=== PATIENT | female | born 1965 | race Caucasian/White ===

== ENCOUNTER 2016-11-25 09:05 | Inpatient (IN) | payer BC ==
[~2016-11-25] VITALS: Ht 162.6 cm; Wt 115.3 kg
--- NOTE | ~2016-11-25 | CON ---
PATIENT'S NAME: BARRETT ANDREWS [facility] AGE: 50 Y [address] ROOM: [place] [address] [place] [facility] [place]MIT DATE: 11/25/2016 Consultation DISCHARGE DATE: FAMILY PHYSICIAN: Abby Young APRN ATTENDING PHYSICIAN: ONESIMO MALIK DATE OF CONSULTATION: 11/25/2016 CHIEF COMPLAINT: Left-sided abdominal pain. HISTORY OF PRESENT ILLNESS: The patient is a pleasant 50-year-old female who had presented to the emergency room in [place], [place], today with complaints of left-sided lower abdominal pain. She had underwent a CT scan where she was found to have left-sided hydronephrosis. There was no evidence of any ureteral calculi, and she did have a dilated ureter down to her lower pelvis. She did have findings on the CT scan which would suggest some sort of retroperitoneal fibrotic process. She did have some retroperitoneal nodularity or possible lymphadenopathy which appeared to have been stable when compared to CT scan back in 2013. Of note, she was admitted back in 2013 with a retroperitoneal hemorrhage, and at that time, she had had right-sided abdominal pain. She does have an IVC filter in place. She denies any previous history of nephrolithiasis. She does have multiple medical issues including obesity and factor V Leiden syndrome. She is on chronic anticoagulation with Xarelto. Her pain started yesterday evening about 10 p.m. She did have some associated nausea and vomiting earlier this morning. She denied any fevers. All of her pain has been located on the left side and was quite severe in nature when she presented to the emergency room. She was then transferred to [facility] for further evaluation and treatment. The patient has no further questions or concerns at this time. PAST MEDICAL HISTORY: 1. Factor V Leiden syndrome. 2. History of depression. 3. History of retroperitoneal hemorrhage in 2013. PAST SURGICAL HISTORY: 1. Splenectomy. 2. Nate IVC filter placement. 3. Hysterectomy without oophorectomy. 4. Appendectomy. 5. Abdominal wall hernia surgery. ALLERGIES: PATIENT'S NAME: BARRETT ANDREWS [facility] AGE: 50 Y [address] ROOM: [place] [address] [place] [facility] [place]MIT DATE: 11/25/2016 Consultation DISCHARGE DATE: FAMILY PHYSICIAN: Abby Young APRN ATTENDING PHYSICIAN: ONESIMO MALIK MORPHINE (HIVES) AND ROCEPHIN (TINGLING). SOCIAL HISTORY: The patient denies any tobacco or alcohol use. FAMILY HISTORY: The patient denies any known family history of genitourinary abnormalities or malignancy. REVIEW OF SYSTEMS: A full 10+ point review of systems was performed with pertinent positive and negative findings included in the History of Present Illness. All other systems were reviewed and are otherwise negative. MEDICATIONS: See hospitalization medication reconciliation. PHYSICAL EXAMINATION: VITAL SIGNS: Her height is 164 cm, and her weight is 114.5 kg. Her vital signs are stable. CONSTITUTIONAL: The patient is in no acute distress. She is awake and oriented. HEENT: Extraocular muscles intact. Mucous membranes moist. No drainage per ears or nose. CARDIAC: Good peripheral perfusion. No tachycardia. RESPIRATORY: No audible wheezing or stridor. ABDOMEN: Obese, soft, and nondistended, with some mild discomfort in her left lower quadrant. She does have a large scar in her left upper quadrant from her previous open splenectomy as well as a lower midline abdominal incision which the patient states was from her . PSYCHIATRIC: Normal affect, and answers questions appropriately. HEMATOLOGIC: No bruising or active sites of bleeding. NEUROLOGIC: No focal deficits noted. IMAGING DATA: I personally reviewed her images from the outside hospital, consistent with findings noted above in the History of Present Illness. LABORATORY DATA: At the outside hospital, she underwent lab work including a white blood cell count which was 10.9, serum creatinine level of 0.8, and a urinalysis which was negative for nitrites and leukocytes, but did have moderate blood. There did not appear to be microscopy performed on the urinalysis. IMPRESSION: PATIENT'S NAME: BARRETT ANDREWS [facility] AGE: 50 Y [address] ROOM: [place] [address] [place] [facility] [place]MIT DATE: 11/25/2016 Consultation DISCHARGE DATE: FAMILY PHYSICIAN: Abby Young APRN ATTENDING PHYSICIAN: ONESIMO MALIK 1. Left abdominal pain. 2. Left hydronephrosis. PLAN: I had a long discussion today with the patient regarding my findings. The patient did not have any obvious urinary calculi causing the hydronephrosis. 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 In the acute setting, I did recommend further treatment with cystoscopy and placement of indwelling left ureteral stent as well as left retrograde ureteral pyelogram. We discussed the risks, benefits, indications, and alternatives to the above procedure, and she wished proceeding and is consenting freely. She has no further questions or concerns at this time. MD AUSTIN HUERTA/maria luisa /[id number] d: 11/25/16 1505 t: 11/26/16 0918, CONSULTATION REPORT
--- NOTE | ~2016-11-25 | OR ---
PATIENT'S NAME: BARRETT ANDREWS [facility] AGE: 50 Y [address] ROOM: [address] [address] LOCATION: [facility] [place] ADMIT DATE: 11/25/2016 OR/Procedure Report DISCHARGE DATE: FAMILY PHYSICIAN: Abby Young APRN ATTENDING PHYSICIAN: ONESIMO MALIK SURGEON: Vidal Bradford MD STATISTICAL PROGRAMMER ANALYST: None. DATE OF PROCEDURE: 11/25/2016 PREOPERATIVE DIAGNOSES: 1. Left hydronephrosis. 2. Left-sided abdominal pain. POSTOPERATIVE DIAGNOSES: 1. Left hydronephrosis. 2. Left-sided abdominal pain. ANESTHESIA ADMINISTERED: Monitored anesthesia care. PROCEDURES PERFORMED: 1. Cystoscopy with placement of left indwelling ureteral stent. 2. Cystoscopy with left retrograde ureteropyelogram. INDICATIONS FOR PROCEDURE: The patient is a pleasant 50-year-old female who had presented with left-sided abdominal pain and was found on CT scan to have left-sided hydronephrosis and hydroureter down to her lower pelvis. 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 The patient was explained the risks, benefits, indications, and alternatives to the above procedures, wished to proceed, and consented freely. DESCRIPTION OF OPERATION: The patient was brought back to the operating room where she was placed on the OR table in the supine position. A surgical time- out was called where patient identification, surgical site, and procedures were then verified. We also did verify that the patient received an IV Levaquin antibiotic within an hour of beginning the procedure. The patient then underwent successful administration of monitored anesthesia care. The patient was then moved and placed in a low lithotomy position where her genital area was then prepped and draped in the usual sterile fashion. I began by carefully advancing a rigid cystoscope easily into the patient's urinary bladder. Full trevino-cystoscopy was performed, and her bladder was negative for any bladder tumors, cellules, or diverticula. Her ureteral orifices were noted to be in their orthotopic location. I then used a 5- Saudi Arabian open-ended ureteral catheter and cannulated her left ureteral orifice. A left retrograde ureteropyelogram was performed. My interpretation was that PATIENT'S NAME: BARRETT ANDREWS [facility] AGE: 50 Y [address] ROOM: [address] [address] LOCATION: [facility] [place] ADMIT DATE: 11/25/2016 OR/Procedure Report DISCHARGE DATE: FAMILY PHYSICIAN: Abby Young APRN ATTENDING PHYSICIAN: ONESIMO MALIK she had significant hydronephrosis and hydroureter down to her distal ureter and was somewhat more distorted within 1 to 2 cm of her bladder. This did appear to be a distal ureteral obstruction. I then cannulated her ureter with a Sensor guidewire and was able to advance the wire up the patient's ureter into her left renal collecting system. I had removed the ureteral catheter, and then, over the wire, I advanced a 6-Saudi Arabian x 26 cm ureteral stent, deploying it, noting a good curl fluoroscopically in the patient's left renal collecting system as well as a good curl visually within her bladder. I then emptied her bladder, and she was then taken out of the lithotomy position where she was then awoken from monitored anesthesia care, transferred to the recovery bed, and transported to the recovery room in good condition. COMPLICATIONS: None. DRAINS: Indwelling 6-Saudi Arabian x 26 cm indwelling ureteral stent. FOLLOWUP PLAN: We will ultimately plan to see the patient back for followup in Urology Clinic in one month from now to discuss her options. Ultimately, she would be a candidate for stent exchange versus stent removal. We may consider, at that time, a repeat left retrograde ureteropyelogram with possible diagnostic ureteroscopy to get a better sense of what is going on within her ureter. VIDAL BRADFORD MD GP/modl /[id number] d: 11/25/161640 t: 11/26/16919, OPERATIVE SUMMARY
--- NOTE | ~2016-11-25 | HP ---
PATIENT'S NAME: BARRETT ANDREWS [facility] AGE: 50 Y [address] ROOM: [address] [address] LOCATION: [facility] [place] ADMIT DATE: 11/25/2016 History & Physical DISCHARGE DATE: FAMILY PHYSICIAN: Abby Young APRN ATTENDING PHYSICIAN: ONESIMO MALIK DATE OF SERVICE: 11/25/2016 CHIEF COMPLAINT: Acute onset left lower quadrant pain. HISTORY OF PRESENT ILLNESS: This is a very pleasant 50-year-old female with a past medical history notable for extensive history of prior DVTs, on Xarelto chronically with an IVC filter in place; also found to be factor V Leiden mutation positive as well as a history of prior right complex ovarian cyst status post removal in 2013. Pain onset was approximately 10:00 p.m. last night and has been constant ever since, located in the left flank with radiation to the left CVA. She denies significant dysuria or hematuria. No recent fevers or chills. No shortness of breath. No chest pain. No bowel symptoms. Workup at the outside emergency department was initially started in [place] and noted a largely unremarkable laboratory evaluation. However, CT scan showed some concerning findings including per verbal report, a possible left ruptured ureter, as well as studded "implants" throughout the abdomen, which may have represented lymphadenopathy versus malignancy. Interestingly, several of these findings were also present in a 2014 CT scan and have not significantly progressed since that time. Additionally, the patient was not noted to have any significant ascites. However, given these abnormal findings, along with a concerning appearance of the left ureter and left hydronephrosis, it was recommended that patient be transferred to [facility] for further evaluation. Currently, she reports her pain is well controlled, denies nausea, but is understandably upset at the possibility of a malignancy. PAST MEDICAL HISTORY: 1. Factor V Leiden mutation. 2. Severe depression. 3. 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 4. Remote history of a reported right ureteral rupture with ureteral stent placed, the patient does not recall the date on this. 5. Prior right complex ovarian cyst. 6. History of retroperitoneal hemorrhage. PAST SURGICAL HISTORY: 1. Hysterectomy without salpingo-oophorectomy. 2. Splenectomy. PATIENT'S NAME: BARRETT ANDREWS [facility] AGE: 50 Y [address] ROOM: [address] [address] LOCATION: [facility] [place] ADMIT DATE: 11/25/2016 History & Physical DISCHARGE DATE: FAMILY PHYSICIAN: Abby Young APRN ATTENDING PHYSICIAN: ONESIMO MALIK 3. Appendectomy. 4. Abdominal hernia repair. 5. IVC filter placement. FAMILY HISTORY: Extensive history of factor V Leiden mutation, father with coronary artery disease, and maternal aunt with cervical cancer. SOCIAL HISTORY: The patient is a lifelong nonsmoker, and denies significant alcohol use, no illicit drug use. She is and is accompanied by her and family at the bedside. ALLERGIES: MORPHINE CAUSES A RASH DOES BAND-AID ADHESIVE, AND REPORTS TINGLING WITH ROCEPHIN. CURRENT MEDICATIONS: Fluoxetine and Xarelto. REVIEW OF SYSTEMS: A complete review of systems was performed and negative except as otherwise noted above. PHYSICAL EXAMINATION: VITAL SIGNS: Temperature is afebrile, pulse is 71, blood pressure is 120/76, saturating 94% on room air, and respirations are 16. GENERAL: The patient is in no apparent distress. Sitting up comfortably on the hospital bed. HEENT: Head; normocephalic and atraumatic. Eyes; pupils equal, round, and reactive to light. Extraocular muscles intact. No scleral icterus. No conjunctival injection. ENT; mucous membranes are dry with no nasal discharge. NECK: Supple. No lymphadenopathy. No thyromegaly. No JVD. CARDIOVASCULAR: Regular rate and rhythm. No murmurs, rubs, or gallops appreciated. 2+ pulses bilaterally in radial and dorsalis pedis. LUNGS: Respirations are clear to auscultation bilaterally with the exception of bibasilar rhonchi, normal respiratory effort. Saturating well on room air. ABDOMEN: Obese, soft, and nontender without appreciable masses. Bowel sounds are normoactive. EXTREMITIES: Without appreciable edema. Does have hyperpigmented apparently recent healing wounds of medial lower extremities bilaterally just proximal to the ankle, these do not appear to be acutely infected without any surrounding warmth or erythema. NEUROLOGIC: Alert and oriented x3 with 5/5 strength bilaterally in the upper and lower extremities. No focal sensory deficits. PATIENT'S NAME: BARRETT ANDREWS [facility] AGE: 50 Y [address] ROOM: [id number] [place], [place] [address] LOCATION: [facility] [place] ADMIT DATE: 11/25/2016 History & Physical DISCHARGE DATE: FAMILY PHYSICIAN: Abby Young APRN ATTENDING PHYSICIAN: ONESIMO MALIK PSYCHIATRIC: The patient's mood is somewhat depressed given the possibility of malignancy, but affect is appropriate. LABORATORY DATA AND IMAGING STUDIES: Currently pending here at [facility], though review of outside records show a white count of 10.9, hemoglobin 13.2, and platelets of 260,000. Sodium 140, potassium 3.6, chloride 106, bicarbonate 23, BUN 11, creatinine 0.8, glucose 113, calcium 8.4, total protein 7.2, albumin 3.2, AST 28, ALT 36, alkaline phosphatase 101, total bilirubin 1.2, and amylase 16. Urinalysis shows moderate blood with 10-20 rbc's per field with no bacteria and no white cells. CT scan full read is included in the chart, a summary of findings includes severe left hydronephrosis with a possible degree of rupture of the left ureter with infiltrating fluid-like densities coursing along the left mid and distal ureter along the iliac and retroperitoneal fascial planes. Does have chronic background multiple abnormal implant like nodularities, left greater than right with many of these findings present in 2013, otherwise, without apparent progression. No obstructing urolith appreciated on initial scan. ASSESSMENT: 1. Acute abdominal pain. 2. Left hydronephrosis. 3. Extensive history of prior deep venous thromboses in the setting of factor V Leiden with inferior vena cava filter and on Xarelto chronically. 4. Severe depression. 5. History of right ovarian cyst as well as a right-sided retroperitoneal hemorrhage in the past. The patient reports a ruptured right ureter in the past which required stenting. PLAN: It is a perplexing situation as many of these CT findings could represent a malignant process; however, many of these findings are also felt to be relatively stable from a scan done three years ago. This does not seem to behave like ovarian cancer, is also not associated with a significant degree of ascites. One of the more rare, but potential considerations in this case may be retroperitoneal fibrosis. This can often be associated with prior retroperitoneal hemorrhage, ovarian cysts, or malignancy indeed. We will ask Urology to see regarding the concerning left ureter and possible need for stenting given the degree of left hydronephrosis which is likely contributing greatest to her pain. We will also ask our radiologist to over-read the outside CT scan and consider pursuit of further imaging as clinical course may warrant. We will add on at this point CA-125 and CEA for tumor markers, add on LDH, and add on sedimentation rate and CRP to further evaluation. As PATIENT'S NAME: BARRETT ANDREWS [facility] AGE: 50 Y [address] ROOM: [id number] [place], [place] [address] LOCATION: [facility] [place] ADMIT DATE: 11/25/2016 History & Physical DISCHARGE DATE: FAMILY PHYSICIAN: Abby Young APRN ATTENDING PHYSICIAN: ONESIMO MALIK mentioned, CBC and CMS were largely unremarkable at outside facility. We will repeat in a.m. We will maintain n.p.o. status currently and hold home Xarelto for possible ureteral stenting later today. I have called and spoken to Urology regarding this case. We will treat pain with Dilaudid and nausea with Zofran. SCDs for deep venous thrombosis prophylaxis while Xarelto was held for procedure. Code Status: The patient is a full code. I spent 35 minutes on date of admission reviewing outside records and in face- to-face evaluation of the patient. MD JEANNE NOONAN/maria luisa /[id number] D: [id number] T: [id number] HISTORY & PHYSICAL
--- NOTE | ~2016-11-25 | DS ---
PATIENT'S NAME: BARRETT ANDREWS [facility] AGE: 51 Y [address] ROOM: [address] [address] LOCATION: [facility] [place] ADMIT DATE: 11/25/2016 Discharge Summary DISCHARGE DATE: 11/26/2016 FAMILY PHYSICIAN: Abby Young APRN ATTENDING PHYSICIAN: Stefania Fowler CONSULTING PHYSICIAN: Luis Angel Bradford MD, Urology. FAMILY PHYSICIAN: Abby Young APRN in [place]. DISCHARGE DIAGNOSES: 1. Left hydronephrosis. 2. Left abdominal pain. 3. Depression. 4. Factor V Leiden syndrome. 5. Long-term anticoagulation with Xarelto. PRINCIPAL PROCEDURES: 1. Cystoscopy with placement of left indwelling ureteral stent. 2. Cystoscopy of left retrograde ureteral pyelogram. These were both done on 11/25/2016. DISCHARGE MEDICATIONS: 1. Prozac 40 mg p.o. daily. 2. Xarelto 20 mg p.o. daily. HOSPITAL COURSE: Please refer to the admitting H and P dictated by Dr. Lemus and also the consultation dictated by Dr. Bradford. The patient was admitted on 11/25/2016 for suspected ruptured left ureter. Urology was consulted. CA- 125 and CEA levels were obtained, given her retroperitoneal fibrosis for rule out any underlying malignancy. Dr. Bradford seen the patient in consultation, and ultimately she was taken to the OR for cystoscopy and left retrograde ureteral pyelogram. Findings showed a left hydronephrosis. A stent was placed without any complication. The patient had no difficulties postoperatively. Her abdominal pain had basically resolved. On the morning of 11/26/2016, the patient was eating, ambulating and had no difficulty with pain. It was decided she could be discharged to home. The patient should follow up with the PCP in 1 week to review results of the outstanding CA-125 and CEA. We should note that Dr. Bradford felt that look more like a fibrotic process in the retroperitoneal than actual malignancy. Again, serology pending. The patient is being advised to follow up with Dr. Bradford with Neurology in 6 weeks. She is being discharged to own home with no restrictions to activity PATIENT'S NAME: BARRETT ANDREWS [facility] AGE: 51 Y [address] ROOM: [id number] [place], [place] [address] LOCATION: [facility] [place] ADMIT DATE: 11/25/2016 Discharge Summary DISCHARGE DATE: 11/26/2016 FAMILY PHYSICIAN: Abby Young APRN ATTENDING PHYSICIAN: Stefania Fowler. She is weightbearing status as tolerated. Thank you for allowing us to help care for this patient during her hospitalization. This discharge took less than 30 minutes. KO GARDNER PA-C FOR MD MARIAN PINEDO/maria luisa /[id number] CC: MD Abby Connor APRN d: 11/27/16 0056 t: 11/28/16 1356, DISCHARGE SUMMARY
[2016-11-25] MEDS ORDERED: XARELTO20 MG PO (11:32)
[2016-11-25] MEDS ORDERED: PROZAC40 MG PO (11:32)
[2016-11-25 13:28] LABS: BILIRUBIN URINE NEGATIVE (NEGATIVE); BLOOD URINE 150 /UL (NEGATIVE); COLOR URINE YELLOW (YELLOW); GLUCOSE URINE NEGATIVE (NEGATIVE); KETONE URINE NEGATIVE (NEGATIVE); LEUKOCYTES URINE NEGATIVE /UL (NEGATIVE); NITRITE URINE NEGATIVE (NEGATIVE); PROTEIN URINE 15 mg/dL (NEGATIVE); TURBIDITY URINE CLEAR (CLEAR); UROBILINOGEN URINE NORMAL (NORMAL)
[2016-11-25 13:38] LABS: INR - (THERAPEUTIC) 0.95 (0.92-1.07)
[2016-11-25 13:39] LABS: BACTERIA URINE NEGATIVE (NEGATIVE); WBC URINE NEGATIVE #/HPF (NEGATIVE)
--- NOTE | 2016-11-25 17:49 | NUR ---
Significant Event: Pt admitted with LLQ pain. Denies n/v. To OR for L) ureter stent placement. Voids in BR with SBA. Hx R) ureter stent. family @ bedside. Post op vs complete. IV L) hand. Follow up:
[2016-11-26 04:39] LABS: BASOPHIL % 0.3 %; EOSINOPHIL # 0.1 K/uL (0.0-0.5); EOSINOPHIL % 0.5 %; HEMATOCRIT 36.3 % (33.0-46.0); HEMOGLOBIN 12.3 g/dL (10.0-15.0); IMMATURE GRANULOCYTE # 0.1 K/uL (0.0-0.3); IMMATURE GRANULOCYTE % 0.4 %; LYMPHOCYTE # 2.9 K/uL (0.8-4.0); LYMPHOCYTE % 23.7 %; MCH 32.6 pg (27.0-34.0); MCHC 33.9 gm/dL (32.0-36.5); MCV 96.3 fl (83.0-98.0); MONOCYTE # 0.9 K/uL (0.0-1.0); MPV 9.6 fl (9.4-12.4); NEUTROPHIL # (ANC) 8.3 K/uL (1.8-7.8); NEUTROPHIL % 68.1 %; NRBC % 0 /100WBC (0-0.00); PLATELET COUNT 253 K/uL (150-450); RBC 3.77 M/uL (3.50-5.50); RDW-CV 14.1 % (11.9-14.6); WBC 12.1 K/uL (4.0-11.0)
[2016-11-26 04:57] LABS: ANION GAP 11.3 (10.0-19.0); CALCIUM 8.7 mg/dL (8.5-10.5); CREATININE 0.8 mg/dL (0.5-1.1); POTASSIUM 3.3 mMol/L (3.7-5.1); TOTAL BILIRUBIN 0.8 mg/dL (0.0-1.5); TOTAL PROTEIN 7.2 g/dL (6.0-8.4)
--- NOTE | 2016-11-26 05:18 | NUR ---
Significant Event: AAOX3. REG DIET. PIV TO LEFT HAND IVF INFUSING AT 75. SBA. VOIDING WELL, VERY LIGHT PINK URINE. PT STATED SHE HAS PAIN BUT IT IS TOLERABLE. NO PRN'S ADMINISTERED. COOPERATIVE WITH CARES. Follow up:
--- NOTE | 2016-11-26 13:57 | NUR ---
Significant Event: Pt c/o headache after lunch, some relief with tylenol. Up ad sang. Will dc later today. VS stable. Follow up:
--- NOTE | 2016-11-26 14:10 | NUR ---
DISCHARGE: D: ORDERS RECEIVED FOR THE PATIENT TO BE DISCHARGED TO HOME TODAY WITH FAMILY. I: DISMISSAL INSTRUCTIONS WERE PREPARED AND REVIEWED WITH THE PATIENT AND [place] AT BEDSIDE. THE FOLLOWING INFORMATION WAS DISCUSSED INCLUDING [employer]ES TEACHING SHEETS PROVIDED: CYSTOSCOPY, STENTS, URETERAL, AND PREVENTING DVT. R: THE PATIENT VERBALIZED UNDERSTANDING OF THE DISMISSAL EDUCATION AT THE TIME OF TEACHING WITH NO FURTHER QUESTIONS. P: THE ABOVE INFORMATION WAS SHARED WITH THE PRIMARY NURSE AND THE CHARGE NURSE THAT THE DISMISSAL EDUCATION WAS COMPLETED. THE PATIENT IS READY FOR DISCHARGE TO THE FRONT DOOR VIA WHEEL CHAIR BY NURSING STAFF.
== END 2016-11-26 14:20 | disposition disaster alternative care site (69) | DRG 694 ==
LOC: GMSU 10:35
PROVIDERS: ADMIT Internal Medicine
PROC: 0T778DZ Dilation of Left Ureter with Intraluminal Device, Via Natural or Artificial Opening Endoscopic (ICD-10-PCS; principal; 2016-11-25)
PROC: BT1FYZZ Fluoroscopy of Left Kidney, Ureter and Bladder using Other Contrast (ICD-10-PCS; 2016-11-25)
DX: N13.30 Unspecified hydronephrosis (principal); D68.51 Activated protein C resistance; Z68.41 Body mass index [BMI] 40.0-44.9, adult; F32.9 Major depressive disorder, single episode, unspecified; Z79.01 Long term (current) use of anticoagulants; E66.9 Obesity, unspecified
CPT/HCPCS: C1769; C2617; J1956; J2001; J2405; J7030